=== PATIENT | female | born 1975 | race African-American/Black ===

== ENCOUNTER 2017-02-21 04:16 | Emergency (ER) | payer MEDICAID ==
[~2017-02-21] VITALS: Ht 165.1 cm; Wt 59.0 kg
[~2017-02-21 04:16] MED LIST: ALBU6.7H INH; ATOR10TA PO
[2017-02-21] MEDS ORDERED: SODIUM CHLORIDE 0.9% 1,000 ML IV ONE (05:19)
[2017-02-21] MEDS ORDERED: ONDANSETRON HCL 4MG/2ML VIAL IV STA ×2 (05:19→06:35)
[2017-02-21] MEDS ORDERED: MORPHINE SULFATE 4 MG/ML CPJ (NOT FOR IM USE) IV STA ×2 (05:19→07:20)
[2017-02-21 05:34] LABS: BASOPHILS % 1.1 % (0.0-2.0); HEMATOCRIT. 39.9 % (36.0-48.0); HEMOGLOBIN. 13.5 g/dL (12.0-16.0); MEAN CORPUSCULAR HEMOGLOBIN 33.5 pg (28.0-32.0); MEAN CORPUSCULAR VOLUME 98.8 fL (81.0-99.0); MONOCYTES % 4.1 % (2.0-8.0); NEUTROPHILS % 78.8 % (40.0-76.0); RED BLOOD CELL COUNT 4.04 mill/uL (4.2-5.4); RED CELL DISTRIBUTION WIDTH 14.4 % (11.6-14.6)
[2017-02-21 05:37] LABS: INR 1.1; PROTHROMBIN TIME 11.3 sec
[2017-02-21 05:45] LABS: CARBON DIOXIDE 22 mEq/L (21-32); CHLORIDE 110 mEq/L (98-107)
[2017-02-21 06:48] LABS: CLARITY URINE CLOUDY (CLEAR); COLOR URINE YELLOW (YELLOW); GLUCOSE URINE NEGATIVE (NEGATIVE); KETONES URINE 2+ (NEGATIVE); LEUKOCYTE ESTERASE URINE NEGATIVE (NEGATIVE); NITRITE URINE NEGATIVE (NEGATIVE); OCCULT BLOOD URINE NEGATIVE (NEGATIVE); PROTEIN URINE 1+ (NEGATIVE); SPECIFIC GRAVITY URINE 1.028 (1.005-1.030)
[2017-02-21 06:58] LABS: *AMPHETAMINES SCREEN URINE NEGATIVE (NEGATIVE); *BARBITURATES SCREEN URINE NEGATIVE (NEGATIVE); *BENZODIAZEPINES SCREEN URINE NEGATIVE (NEGATIVE); *COCAINE SCREEN URINE NEGATIVE (NEGATIVE); METHADONE URINE SCREEN NEGATIVE (NEGATIVE); PHENCYCLIDINE URINE SCREEN NEGATIVE (NEGATIVE)
[2017-02-21 07:03] LABS: PLATELET 165 x1000/uL (130-400)
[2017-02-21 07:03] LABS: CANNABINOID URINE SCREEN PRESUMTIVE POSITIVE (NEGATIVE); OPIATES URINE SCREEN PRESUMTIVE POSITIVE (NEGATIVE)
[2017-02-21 08:36] VITALS: BP 104/59
== END 2017-02-21 08:38 | disposition home or self-care (01) ==
LOC: ER 04:16
DX: R10.2 Pelvic and perineal pain (principal); Z87.440 Personal history of urinary (tract) infections; Z98.890 Other specified postprocedural states
CPT/HCPCS: 36415; 80053; 80305; 81001; 81025; 83690; 85025; 85610; 96361; 96374; 96375; 96376; 99285; J2270; J2405; J7030; Z7610

== ENCOUNTER 2019-08-02 06:55 | Emergency (ER) | payer MEDICAID ==
[~2019-08-02] VITALS: Ht 165.1 cm; Wt 70.4 kg
[2019-08-02] MEDS ORDERED: KETOROLAC 30MG/ML VIAL IM ONE (07:30)
[2019-08-02 09:27] VITALS: BP 105/62
== END 2019-08-02 09:28 | disposition home or self-care (01) ==
LOC: ER 06:55
DX: M79.674 Pain in right toe(s) (principal); J45.909 Unspecified asthma, uncomplicated; Z90.710 Acquired absence of both cervix and uterus; Z98.890 Other specified postprocedural states
CPT/HCPCS: 73630; 96372; 99283; J1885; Z7610

== ENCOUNTER 2021-12-05 11:59 | Emergency (ER) | payer SELFPAY ==
[~2021-12-05] VITALS: Ht 165.1 cm; Wt 68.0 kg
[~2021-12-05 11:59] MED LIST changes: -ALBU6.7H INH; +ALBU6.7H15 INH
[2021-12-05] MEDS ORDERED: FAMOTIDINE 20MG/2ML VIAL IV STA (12:40)
[2021-12-05] MEDS ORDERED: ONDANSETRON HCL 4MG/2ML INJ IV STA (12:40)
[2021-12-05] MEDS ORDERED: SODIUM CHLORIDE 0.9% 1,000 ML IV ONE (12:45)
[2021-12-05] MEDS ORDERED: MAGNESIUM/ALUMINUM HYDROXIDE/SIMETHICONE 30ML UDC PO ONE (13:00)
[2021-12-05 13:29] LABS: BASOPHILS % 0.3 % (0.0-2.0); EOSINOPHILS % 0.4 % (0.0-5.0); HEMOGLOBIN. 14.2 g/dL (12.0-16.0); LYMPHOCYTES % 10.6 % (20.0-50.0); MEAN CORPUSCULAR VOLUME 100.4 fL (81.0-99.0); MEAN PLATELET VOLUME 11.4 fl (7.4-10.4); MONOCYTES % 3.6 % (2.0-8.0); NEUTROPHILS % 85.1 % (40.0-76.0); PLATELET 212 x1000/uL (130-400); RED BLOOD CELL COUNT 4.18 mill/uL (4.2-5.4); RED CELL DISTRIBUTION WIDTH 14.2 % (11.6-14.6)
[2021-12-05] MEDS ORDERED: PROCHLORPERAZINE 10MG/2ML VIAL IM ONE (13:30)
[2021-12-05 13:38] LABS: CHLORIDE 107 mEq/L (98-107)
[2021-12-05 13:44] LABS: HCG SCREEN NEGATIVE
[2021-12-05] MEDS ORDERED: PROT40 MT (17:07)
[2021-12-05] MEDS ORDERED: COM10 MT (17:07)
[2021-12-05 17:21] VITALS: BP 142/67
== END 2021-12-05 17:05 | disposition home or self-care (01) ==
LOC: ER 11:59
DX: R10.84 Generalized abdominal pain (principal); K76.9 Liver disease, unspecified; R11.2 Nausea with vomiting, unspecified; I10 Essential (primary) hypertension; F12.10 Cannabis abuse, uncomplicated; Z85.3 Personal history of malignant neoplasm of breast; Z98.51 Tubal ligation status
CPT/HCPCS: 36415; 76705; 80053; 83690; 84703; 85025; 96361; 96372; 96374; 96375; 99284; J0780; J2405; J3490; J7030